=== PATIENT | female | born 1985 | race Caucasian/White ===

== ENCOUNTER 2017-10-10 08:00 | Outpatient (CLI) | payer MEDICAID ==
[2017-10-10 15:13] LABS: MUDS CUTOFF CONCENTRATIONS CUTOFF CONC BELOW:
[2017-10-10 17:40] LABS: AMPHETAMINE SCREEN,URINE POSITIVE (NEGATIVE); COCAINE SCREEN URINE NEGATIVE (NEGATIVE); METHAMPHETAMINES SCREEN, URINE NEGATIVE (NEGATIVE); OPIATE SCREEN, URINE NEGATIVE (NEGATIVE)
[2017-10-10 17:41] LABS: BENZODIAZEPINES SCREEN, URINE NEGATIVE (NEGATIVE); METHADONE SCREEN, URINE NEGATIVE (NEGATIVE); OXYCODONE SCREEN, URINE NEGATIVE (NEGATIVE); PROPOXYPHENE SCREEN, URINE NEGATIVE (NEGATIVE); TRICYCLIC ANTIDEPRESSANT,URINE NEGATIVE (NEGATIVE)
== END 2017-10-10 08:01 | disposition home or self-care (01) ==
LOC: LAB.S 08:00
PROVIDERS: ATTEND Nurse Practitioner Family
DX: F90.9 Attention-deficit hyperactivity disorder, unspecified type (principal)
CPT/HCPCS: 80306

== ENCOUNTER 2019-10-24 15:54 | Emergency (ER) | payer MEDICAID, OTHER ==
[2019-10-24] MEDS ORDERED: traMADol 50 MG TABLET PO STA (16:16)
--- NOTE | 2019-10-24 16:18 | ED Physician Documentation ---
History of Present Illness - Stated complaint Stated Complaint: FELL NECK,SHOULDER PX - Chief complaint Chief Complaint: Back Pain - History obtained from History obtained from: Patient (34-year-old female generally healthy presented emergency room with left shoulder and left scapular area tenderness. She fell 5 days ago and pain is not improving. She has taken some Flexeril from her previous prescription and there was no relief.During her fall 5 days ago, there was no direct impact to the head. Patient had a sudden jerk as she landed onto the ground.In the emergency room patient is able to ambulate without difficulty. She is able to describe her symptoms very clearly. She had mild limited range of motion to the left shoulder.), Family - History of Present Illness Timing: How many days ago (5) Review of Systems Ten Systems: 10 systems reviewed and negative Constitutional: reports: Reviewed and negative Eyes: reports: Reviewed and negative Ears: reports: Reviewed and negative Nose: reports: Reviewed and negative Throat: reports: Reviewed and negative Cardiac: reports: Reviewed and negative Respiratory: reports: Reviewed and negative GI: reports: Reviewed and negative : reports: Reviewed and negative Skin: reports: Reviewed and negative Musculoskeletal: reports: Neck pain (left side neck muscle), Extremity pain (left shoulder pain on ROM) Neurologic: reports: Reviewed and negative. denies: Generalized weakness, Focal weakness, Numbness Psychiatric: reports: Reviewed and negative Endocrine: reports: Reviewed and negative Immunocompromised: reports: Reviewed and negative PD PAST MEDICAL HISTORY - Past Medical History Past Medical History: Yes [employer]: Endometriosis HEENT: Dental implants - Past Surgical History Past Surgical History: Yes General: Appendectomy HEENT: Myringotomy (tubes), Tonsil/Adenoidectomy - Present Medications Home Medications: Ambulatory Orders Medication Instructions Recorded Confirmed Methadone HCl [Methadose] 40 mg PO DAILY 02/02/14 02/02/14 Sulfamethoxazole/Trimethoprim 1 each PO BID #14 tablet 02/03/14 [Sulfamethoxazole-Tmp Ds Tablet] Clindamycin HCl 300 mg PO Q6H #28 capsule 02/05/14 Cyclobenzaprine [Flexeril] 10 mg PO TID PRN #20 tablet 10/24/19 Oxycodone HCl/Acetaminophen 1 - 2 each PO Q6H PRN #10 tablet 10/24/19 [Percocet 5-325 mg Tablet] - Allergies Allergies/Adverse Reactions: Allergies Allergy/AdvReac Type Severity Reaction Status Date / Time ketorolac tromethamine * Allergy Severe Headache Verified 10/24/19 16:07 [From Toradol] morphine Allergy Severe Hives Verified 10/24/19 16:07 Penicillins Allergy Severe Hives Verified 10/24/19 16:07 hydrocodone [Hydrocodone] AdvReac Intermediate Cramps Verified 10/24/19 16:07 - Social History Does the pt smoke?: Yes Smoking Status: Current every day smoker Does the pt drink ETOH?: No Does the pt have substance abuse?: No - Immunizations Immunizations are current?: Yes - POLST Patient has POLST: No PD ED PE NORMAL - Vitals Vital signs reviewed: Yes - General General: Alert and oriented X 3, No acute distress, Well developed/nourished - HEENT HEENT: Atraumatic, PERRL, EOMI - Neck Neck: Supple, no meningeal sign - Cardiac Cardiac: RRR, No murmur - Respiratory Respiratory: No respiratory distress, Clear bilaterally - Abdomen Abdomen: Normal bowel sounds, Soft, Non tender, Non distended - Derm Derm: Warm and dry - Extremities Extremities: No deformity, No edema, Other (Limited range of motion of the left shoulder, tenderness to palpation of the left scapula,) - Neuro Neuro: Alert and oriented X 3, No motor deficit, Normal speech Eye Opening: Spontaneous Motor: Obeys Commands Verbal: Oriented GCS Score: 15 - Psych Psych: Normal mood, Normal affect Results - Vitals Vitals: Vital Signs - 24 hr 10/24/19 15:57 Temperature 36.8 C Heart Rate 77 Respiratory 17 Rate Blood Pressure 160/94 H O2 Saturation 100 Oxygen O2 Source Room air - Rads (name of study) No standard instances Radiology: Final report received PD MEDICAL DECISION MAKING - ED course Complexity details: d/w patient, d/w family ED course: Patient is reassessed at 5 PM, disclosed negative x-ray of the left shoulder. She is given impression of left shoulder sprain, likely injury to the rotator cuff tendon. She is recommended to follow-up with her primary care doctor for physical therapy referral. Departure - Departure Disposition: 01 Home, Self Care Clinical Impression: Strain of left shoulder Qualifiers: Encounter type: initial encounter Qualified Code(s): S46.912A - Strain of unspecified muscle, fascia and tendon at shoulder and upper arm level, left arm, initial encounter Rhomboid muscle strain Qualifiers: Encounter type: initial encounter Qualified Code(s): S29.012A - Strain of muscle and tendon of back wall of thorax, initial encounter Rotator cuff dysfunction Qualifiers: Laterality: left Qualified Code(s): M67.912 - Unspecified disorder of synovium and tendon, left shoulder Condition: Stable Instructions: Rotator Cuff Injury, ED Sprain Shoulder Follow-Up: Provider,Other [Primary Care Provider] - Prescriptions: Cyclobenzaprine [Flexeril] 10 mg PO TID PRN #20 tablet PRN Reason: Spasms Oxycodone HCl/Acetaminophen [Percocet 5-325 mg Tablet] 1 - 2 each PO Q6H PRN #10 tablet PRN Reason: pain Forms: Activity restrictions
--- NOTE | 2019-10-24 16:49 | XRAY Report ---
Reason: fall Procedure Date: 10/24/2019 Accession Number: [id number] / [id number] Procedure: XR - Shoulder 3 View LT CPT Code: Final Report FULL RESULT: EXAM: LEFT SHOULDER RADIOGRAPHY EXAM DATE: 10/24/2019 04:34 PM. CLINICAL HISTORY: Left shoulder/scapular pain since fall one week ago COMPARISON: None. TECHNIQUE: 3 views. FINDINGS: Bones: No fracture or bone destructive process. Joints: No subluxation. Glenohumeral and acromioclavicular joints are preserved. Soft tissues: No periarticular calcifications. IMPRESSION: 1. Negative. No significant bony or articular abnormality identified. RADIA
[2019-10-24 17:17] VITALS: BP 148/91
== END 2019-10-24 17:18 | disposition home or self-care (01) ==
LOC: ED 15:54
DX: S46.912A Strain of unspecified muscle, fascia and tendon at shoulder and upper arm level, left arm, initial encounter (principal); S29.012A Strain of muscle and tendon of back wall of thorax, initial encounter; M54.2 Cervicalgia; W01.0XXA Fall on same level from slipping, tripping and stumbling without subsequent striking against object, initial encounter; Y93.02 Activity, running; M67.912 Unspecified disorder of synovium and tendon, left shoulder; F17.200 Nicotine dependence, unspecified, uncomplicated
CPT/HCPCS: 73030; 99283; 99284; A9270

== ENCOUNTER 2020-02-04 15:02 | Outpatient (CLI) | payer OTHER | END 2020-02-04 15:03 | disposition home or self-care (01) | LOC: LAB 15:02 | PROVIDERS: ATTEND Family Medicine | DX: O20.9 Hemorrhage in early pregnancy, unspecified (principal) | CPT/HCPCS: 36415; 84702; 86900; 86901 ==

== ENCOUNTER 2020-02-06 11:55 | Outpatient (CLI) | payer OTHER | END 2020-02-06 11:56 | disposition home or self-care (01) | LOC: LAB 11:55 | PROVIDERS: ATTEND Family Medicine | DX: O20.9 Hemorrhage in early pregnancy, unspecified (principal) | CPT/HCPCS: 36415; 84144; 84702 ==

== ENCOUNTER 2020-03-25 01:36 | Emergency (ER) | payer OTHER ==
--- NOTE | 2020-03-25 02:02 | ED Physician Documentation ---
PD HPI FEMALE - Stated complaint Stated Complaint: FEM /11WKS PREG - Chief complaint Chief Complaint: Abd Pain - History obtained from History obtained from: Patient, Family - History of Present Illness Timing - onset: Today Timing - duration: Minutes Timing - details: Abrupt onset, Still present Associated symptoms: Pelvic pain, Vaginal bleeding Contributing factors: [employer] History: G (1), P (0) Similar symptoms before: Has not had sx before Recently seen: Clinic - Additional information Additional information: 32-year-old previously well female reports being 11 weeks and having acute onset of bleeding and cramping. She is having excessive amounts of bleeding passing clots and saturating a pad in 2 hours. She has significant pelvic pain associated with this.She reports having an ultrasound done showing a viable fetus 2 weeks ago. Review of Systems Constitutional: denies: Fever Ears: denies: Ear pain Nose: denies: Congestion Throat: denies: Sore throat Cardiac: denies: Chest pain / pressure Respiratory: denies: Dyspnea, Cough GI: reports: Abdominal Pain, Nausea : denies: Dysuria, Frequency Skin: denies: Rash Musculoskeletal: denies: Neck pain, Back pain, Extremity pain Neurologic: denies: Generalized weakness, Focal weakness, Numbness PD PAST MEDICAL HISTORY - Past Medical History [employer]: Endometriosis HEENT: Dental implants - Past Surgical History Past Surgical History: Yes General: Appendectomy HEENT: Myringotomy (tubes), Tonsil/Adenoidectomy - Present Medications Home Medications: Ambulatory Orders Medication Instructions Recorded Confirmed Methadone HCl [Methadose] 40 mg PO DAILY 02/02/14 02/02/14 Sulfamethoxazole/Trimethoprim 1 each PO BID #14 tablet 02/03/14 [Sulfamethoxazole-Tmp Ds Tablet] Clindamycin HCl 300 mg PO Q6H #28 capsule 02/05/14 Cyclobenzaprine [Flexeril] 10 mg PO TID PRN #20 tablet 10/24/19 Oxycodone HCl/Acetaminophen 1 - 2 each PO Q6H PRN #10 tablet 10/24/19 [Percocet 5-325 mg Tablet] Oxycodone HCl/Acetaminophen 1 - 2 each PO Q6H PRN #14 tablet 03/25/20 [Percocet 5-325 mg Tablet] - Allergies Allergies/Adverse Reactions: Allergies Allergy/AdvReac Type Severity Reaction Status Date / Time ketorolac tromethamine * Allergy Severe Headache Verified 10/24/19 16:07 [From Toradol] morphine Allergy Severe Hives Verified 10/24/19 16:07 Penicillins Allergy Severe Hives Verified 10/24/19 16:07 latex Allergy Rash Verified 03/25/20 01:49 tramadol [From Ultram] Allergy Headache Verified 03/25/20 01:49 hydrocodone [Hydrocodone] AdvReac Intermediate Cramps Verified 10/24/19 16:07 - Social History Does the pt smoke?: Yes Smoking Status: Current every day smoker Does the pt drink ETOH?: No Does the pt have substance abuse?: No - Immunizations Immunizations are current?: Yes - POLST Patient has POLST: No PD ED PE NORMAL - Vitals Vital signs reviewed: Yes (hypertensive ) - General General: Alert and oriented X 3, No acute distress, Well developed/nourished - HEENT HEENT: Atraumatic, PERRL, EOMI - Neck Neck: Supple, no meningeal sign - Cardiac Cardiac: RRR, No murmur - Respiratory Respiratory: No respiratory distress, Clear bilaterally - Abdomen Abdomen: Soft, Other (mild suprapubic tenderness ) - Back Back: No CVA TTP, No spinal TTP - Derm Derm: Normal color, Warm and dry, No rash - Extremities Extremities: No deformity, No edema, No calf tenderness / cord - Neuro Neuro: Alert and oriented X 3, cat swamper 2-12 intact, No motor deficit, No sensory deficit, Normal speech Eye Opening: Spontaneous Motor: Obeys Commands Verbal: Oriented GCS Score: 15 - Psych Psych: Normal mood, Normal affect Results - Vitals Vitals: Vital Signs - 24 hr 03/25/20 03/25/20 03/25/20 01:43 03:09 03:35 Temperature 36.8 C Heart Rate 92 77 81 Respiratory 18 16 18 Rate Blood Pressure 137/90 H 116/74 130/65 O2 Saturation 100 100 97 03/25/20 03/25/20 03/25/20 04:03 04:53 05:05 Temperature Heart Rate 69 73 84 Respiratory 16 Rate Blood Pressure 114/58 L 104/62 118/78 O2 Saturation 97 99 99 Oxygen O2 Source Room air - Labs Labs: Laboratory Tests 03/25/20 03/25/20 03/25/20 02:38 02:38 02:38 WBC 18.7 H RBC 4.45 Hgb 13.6 Hct 40.8 MCV 91.7 MCH 30.6 MCHC 33.3 RDW 11.9 L Plt Count 317 MPV 9.8 Neut # (Auto) 16.8 H Lymph # (Auto) 1.1 L [place] # (Auto) 0.6 Eos # (Auto) 0.0 Baso # (Auto) 0.1 Absolute Nucleated RBC 0.00 Nucleated RBC % 0.0 Sodium 138 Potassium 3.9 Chloride 102 Carbon Dioxide 26 Anion Gap 10.0 BUN 10 Creatinine 0.6 Estimated GFR (MDRD) 116 Glucose 105 H Calcium 9.6 Total Bilirubin 0.5 AST 19 ALT 26 Alkaline Phosphatase 48 Total Protein 7.6 Albumin 4.7 Globulin 2.9 Albumin/Globulin Ratio 1.6 Lipase 30 HCG, Quant 2068.00 Urine Color Urine Clarity Urine pH Ur Specific [place] Urine Protein Urine Glucose (UA) Urine Ketones Urine Occult Blood Urine Nitrite Urine Bilirubin Urine Urobilinogen Ur Leukocyte Esterase Urine RBC Urine WBC Ur Squamous Epith Cells Urine Bacteria Ur Microscopic Review Urine Culture Comments 03/25/20 03:50 WBC RBC Hgb Hct MCV MCH MCHC RDW Plt Count MPV Neut # (Auto) Lymph # (Auto) [place] # (Auto) Eos # (Auto) Baso # (Auto) Absolute Nucleated RBC Nucleated RBC % Sodium Potassium Chloride Carbon Dioxide Anion Gap BUN Creatinine Estimated GFR (MDRD) Glucose Calcium Total Bilirubin AST ALT Alkaline Phosphatase Total Protein Albumin Globulin Albumin/Globulin Ratio Lipase HCG, Quant Urine Color LT RED Urine Clarity SL. CLOUDY Urine pH 5.5 Ur Specific [place] 1.020 Urine Protein TRACE Urine Glucose (UA) NEGATIVE Urine Ketones NEGATIVE Urine Occult Blood LARGE H Urine Nitrite NEGATIVE Urine Bilirubin NEGATIVE Urine Urobilinogen 0.2 (NORMAL) Ur Leukocyte Esterase TRACE H Urine RBC TNTC H Urine WBC 0-3 Ur Squamous Epith Cells RARE Squamous Urine Bacteria Rare Ur Microscopic Review INDICATED Urine Culture Comments INDICATED - Rads (name of study) u/s pelvis Radiology: Prelim report reviewed (1 no intrauterine gestation. Thickened heterogeneous endometrial stripe part of which is nonvascular favoring hemorrhage. No adnexal masses or free fluid to suggest ectopic . Findings favor missed spontaneous .), EMP read indepedently, See rad report Procedures - Bedside sono Bedside sono by EMP: With use of bedside ultrasound the pelvis is imaged and there is no evidence of a fetus or gestational sac in the uterus. PD MEDICAL DECISION MAKING - ED course Complexity details: reviewed old records, reviewed results, re-evaluated patient, considered differential, d/w patient, d/w family ED course: 34-year-old female 11 weeks has falling hCG, bleeding, cramping and passing of clots she is O+ blood type. Ultrasound does not demonstrate a fetus in the uterus. There is no evidence of ectopic on the ultrasound ex am. She has had a spontaneous miscarriage and she is bleeding and cramping heavily and she has improvement in her pain with use of Dilaudid. She is given a prescription for oxycodone. Departure - Departure Disposition: 01 Home, Self Care Clinical Impression: Miscarriage Condition: Stable Instructions: ED Miscarriage Completed Follow-Up: CHANI BEDOLLA MD [Primary Care Provider] - [facility] [Provider Group] Prescriptions: Oxycodone HCl/Acetaminophen [Percocet 5-325 mg Tablet] 1 - 2 each PO Q6H PRN #14 tablet PRN Reason: pain
[2020-03-25] MEDS ORDERED: HYDROmorphone 1 MG/ML CARPUJECT IVP STA ×2 (02:03→03:26)
[2020-03-25] MEDS ORDERED: ONDANSETRON 4 MG/2 ML VIAL IVP STA (02:03)
[2020-03-25 02:58] LABS: BASOPHILS # (AUTO) 0.1 10^3/uL (0.0-0.1); BASOPHILS % (AUTO) 0.4 %; EOSINOPHILS % (AUTO) 0.2 %; HGB - HEMOGLOBIN 13.6 g/dL (12.0-16.0); LYMPHOCYTES # (AUTO) 1.1 10^3/uL (1.5-3.5); LYMPHOCYTES % (AUTO) 5.8 %; MEAN CORPUSCULAR HEMOGLOBIN 30.6 pg (27.0-31.0); MEAN CORPUSCULAR HGB CONC 33.3 g/dL (32.0-36.0); MEAN CORPUSCULAR VOLUME 91.7 fL (81.0-99.0); MEAN PLATELET VOLUME 9.8 fL (7.9-10.8); MONOCYTES # (AUTO) 0.6 10^3/uL (0.0-1.0); NEUTROPHILS # (AUTO) 16.8 10^3/uL (1.5-6.6); NEUTROPHILS % (AUTO) 89.9 %; PLT - PLATELET COUNT 317 10^3/uL (130-450); RED BLOOD COUNT 4.45 10^6/uL (4.20-5.40); RED CELL DISTRIBUTION WIDTH 11.9 % (12.0-15.0); WHITE BLOOD COUNT 18.7 x10^3/uL (4.8-10.8)
[2020-03-25 03:11] LABS: ALBUMIN 4.7 g/dL (3.2-5.5); ALBUMIN/GLOBULIN RATIO 1.6 (1.0-2.2); BILIRUBIN,TOTAL 0.5 mg/dL (0.2-1.0); CALCIUM 9.6 mg/dL (8.5-10.3); CREATININE 0.6 mg/dL (0.4-1.0); TOTAL PROTEIN 7.6 g/dL (6.7-8.2)
[2020-03-25 04:03] LABS: BILIRUBIN,URINE NEGATIVE (NEGATIVE); GLUCOSE, URINE (UA) NEGATIVE (NEGATIVE); KETONES,URINE (UA) NEGATIVE (NEGATIVE); LEUKOCYTE ESTERASE, URINE TRACE (NEGATIVE); NITRITE,URINE NEGATIVE (NEGATIVE); OCCULT BLOOD,URINE LARGE (NEGATIVE); PH,URINE 5.5 PH (5.0-7.5); PROTEIN,URINE TRACE mg/dL (NEGATIVE); UROBILINOGEN,URINE 0.2 (NORMAL) E.U./dL (NORMAL)
[2020-03-25 04:17] LABS: BACTERIA,URINE Rare /HPF (None Seen); CLARITY,URINE SL. CLOUDY (CLEAR); RBC,URINE TNTC /HPF (0-5); SQUAMOUS EPITHELIAL CELL,UR RARE Squamous (<= Few)
[2020-03-25 05:06] VITALS: BP 118/78
[2020-03-25] MEDS ORDERED: oxyCODONE/ACET 5/325 Prepack 4 PO STA (05:10)
--- NOTE | 2020-03-25 08:39 | Ultrasound Report ---
PROCEDURE: OB First Trimester INDICATIONS: 11 wks bleeding OUTSIDE/PRIOR DATING DATA: Last menstrual period (LMP): 12/23/2019. LMP-based estimated date of delivery (PAVAN): 09/28/2020. First dating scan (date and location): 03/11/2020 at patient's primary care clinic. Demonstrated intra uterine gestation measuring approximately 9 weeks and 1 day. Estimated date of delivery (PAVAN) from first dating scan: 11 weeks and 01 day. TECHNIQUE: Real-time scanning was performed of the fetus and maternal pelvic organs, with image documentation. COMPARISON: Prior imaging not available for review. FINDINGS: Heterogeneously thickened endometrium with a few scattered foci of internal vascularity. N o focal mass lesions. Endometrium measures approximately 14 mm in thickness. No evidence for an intra uterine gestation or gestational sac. A few small nabothian cysts are present in the cervix. There is a small 1.7 cm cyst in the left ovary, likely representing a corpus luteal cyst. Otherwise, ovaries are unremarkable bilaterally. No pathologic free fluid. Limited images through the kidneys demonstrate no hydronephrosis. IMPRESSION: Heterogeneously thickened endometrium with scattered foci of vascularity. No evidence for intrauterin e gestation/gestational sac. No evidence for ectopic identified this time. Given history of a documented intrauterine gestation, findings are likely related to a missed spontan eous miscarriage. Recommend continued clinical surveillance and serial quantitative hCG measurements to ensure expected rate of decline. Short interval follow-up imaging as needed. No significant discrepancy with initial interpretation by overnight radiologist. Reviewed by: John Farris MD on 03/25/2020 8:38 AM PDT Approved by: John Farris MD on 03/25/2020 8:38 AM PDT Station ID: [id number]
--- NOTE | 2020-03-25 08:40 | Ultrasound Report ---
PROCEDURE: OB First Trimester INDICATIONS: 11 wks bleeding OUTSIDE/PRIOR DATING DATA: Last menstrual period (LMP): 12/23/2019. LMP-based estimated date of delivery (PAVAN): 09/28/2020. First dating scan (date and location): 03/11/2020 at patient's primary care clinic. Demonstrated intra uterine gestation measuring approximately 9 weeks and 1 day. Estimated date of delivery (PAVAN) from first dating scan: 11 weeks and 01 day. TECHNIQUE: Real-time scanning was performed of the fetus and maternal pelvic organs, with image documentation. Transvaginal imaging was also performed. COMPARISON: Prior imaging not available for review. FINDINGS: Heterogeneously thickened endometrium with a few scattered foci of internal vascularity. N o focal mass lesions. Endometrium measures approximately 14 mm in thickness. No evidence for an intra uterine gestation or gestational sac. A few small nabothian cysts are present in the cervix. There is a small 1.7 cm cyst in the left ovary, likely representing a corpus luteal cyst. Otherwise, ovaries are unremarkable bilaterally. No pathologic free fluid. Limited images through the kidneys demonstrate no hydronephrosis. IMPRESSION: Heterogeneously thickened endometrium with scattered foci of vascularity. No evidence for intrauterin e gestation/gestational sac. No evidence for ectopic identified this time. Given history of a documented intrauterine gestation, findings are likely related to a missed spontan eous miscarriage. Recommend continued clinical surveillance and serial quantitative hCG measurements to ensure expected rate of decline. Short interval follow-up imaging as needed. No significant discrepancy with initial interpretation by overnight radiologist. Reviewed by: John Farris MD on 03/25/2020 8:39 AM PDT Approved by: John Farris MD on 03/25/2020 8:39 AM PDT Station ID: [id number]
== END 2020-03-25 05:31 | disposition home or self-care (01) ==
LOC: ED 01:36
DX: O03.9 Complete or unspecified spontaneous abortion without complication (principal); F17.200 Nicotine dependence, unspecified, uncomplicated
CPT/HCPCS: 36415; 76801; 76817; 80053; 81001; 83690; 84702; 85025; 87086; 96374; 96375; 96376; 99284; J1170; 81003

== ENCOUNTER 2021-01-22 08:00 | Outpatient (CLI) | payer OTHER ==
[2021-01-23 20:33] LABS: CHLAMYDIA TRACHOMATIS DNA NEGATIVE (NEGATIVE); NEISSERIA GONORRHOEAE DNA NEGATIVE (NEGATIVE); TRICHOMONAS VAGINALIS DNA NEGATIVE (NEGATIVE)
== END 2021-01-22 23:59 | disposition home or self-care (01) ==
LOC: LAB.R 08:00
PROVIDERS: ATTEND Obstetrics & Gynecology
DX: Z11.3 Encounter for screening for infections with a predominantly sexual mode of transmission (principal)
CPT/HCPCS: 87491; 87591; 87661

== ENCOUNTER 2023-01-21 07:47 | Emergency (ER) | payer BC, OTHER ==
--- NOTE | 2023-01-21 08:35 | ED Physician Documentation ---
PD HPI CHEST PAIN - Stated complaint Stated Complaint: LT ARM PX,CHEST PX - Chief complaint Chief Complaint: Cardiac - History obtained from History obtained from: Patient, Family - Additional information Additional information: Patient is a 37-year-old female presenting for evaluation of chest pain. Patient states that she woke up around 3:00 feeling a discomfort in her left shoulder which she attributed to laying on that side. She was able to go back to sleep. She woke up at 630 and reported feeling a pressure in the left side of her chest that she also feels in her left arm that comes and goes. The pain in the chest has been constant since 630 AM. Nothing makes it better or worse including movements or taking a deep breath. Patient has a history of hypertension. She reports having had other episodes of similar chest pain and has been working with her PCP in figuring out if this is related to her blood pressure medication or not. She denies having had any prior cardiology evaluat ion including EKGs, chest x-ray or stress test. She reports a family history of early coronary artery disease. She states that her uncle had an MO In his 30s. She also reports that her father had significant vascular disease with a AAA diagnosed at 50. Her father did not have any Cardiac history but did have a history of hypertension, hyperlipidemia and was a smoker. Her mother is at the bedside and denies any known coronary artery disease. She has half siblings on her mother's side and mother states that they do not have any known cardiac problems.Patient occasionally uses cannabis. Denies other drug use.Does not smoke.Denies recent travel or immobilization, history of PE or DVT, leg swelling or pain, hemoptysis, fevers.She is unsure about as she is trying to get and her period is due soon. Review of Systems Constitutional: denies: Fever Cardiac: reports: Chest pain / pressure. denies: Palpitations Respiratory: denies: Dyspnea, Cough GI: denies: Abdominal Pain, Vomiting, Diarrhea Musculoskeletal: denies: Back pain Neurologic: denies: Headache PD PAST MEDICAL HISTORY - Past Medical History DOORPERSON: Endometriosis HEENT: Dental implants - Past Surgical History Past Surgical History: Yes General: Appendectomy HEENT: Myringotomy (tubes), Tonsil/Adenoidectomy - Present Medications Home Medications: Ambulatory Orders Medication Instructions Recorded Confirmed Dextroamphetamine/Amphetamine 20 mg PO DAILY PRN 01/21/23 01/21/23 [Adderall 20 mg Tablet] Labetalol [Trandate] 200 mg PO BID 01/21/23 01/21/23 buPROPion [Wellbutrin Xl] 450 mg PO DAILY 01/21/23 01/21/23 - Allergies Allergies/Adverse Reactions: Allergies Allergy/AdvReac Type Severity Reaction Status Date / Time ketorolac tromethamine * Allergy Severe Headache Verified 01/21/23 08:07 [From Toradol] morphine Allergy Severe Hives Verified 01/21/23 08:07 Penicillins Allergy Severe Hives Verified 01/21/23 08:07 latex Allergy Rash Verified 01/21/23 08:07 tramadol [From Ultram] Allergy Headache Verified 01/21/23 08:07 hydrocodone [Hydrocodone] AdvReac Intermediate Cramps Verified 01/21/23 08:07 - Social History Does the pt smoke?: Yes Smoking Status: Current every day smoker Does the pt drink ETOH?: No Does the pt have substance abuse?: No - Immunizations Immunizations are current?: Yes - POLST Patient has POLST: No PD ED PE NORMAL - General General: Alert and oriented X 3, No acute distress, Well developed/nourished - HEENT HEENT: Atraumatic - Neck Neck: Supple, no meningeal sign - Cardiac Cardiac: RRR, No murmur, Other (No chest wall tenderness or crepitus, no rash) - Respiratory Respiratory: No respiratory distress, Clear bilaterally - Abdomen Abdomen: Soft, Non tender - Derm Derm: Warm and dry - Extremities Extremities: No edema, No calf tenderness / cord - Neuro Neuro: Normal speech Results - Vitals Vitals: Vital Signs - 24 hr 01/21/23 01/21/23 01/21/23 08:03 09:36 10:19 Temperature 36.7 C Heart Rate 74 71 66 Respiratory 16 18 18 Rate Blood Pressure 137/77 H 122/64 121/70 O2 Saturation 99 95 97 01/21/23 01/21/23 01/21/23 11:00 11:30 13:03 Temperature Heart Rate 72 83 80 Respiratory 19 20 16 Rate Blood Pressure 114/84 H 96/69 124/56 L O2 Saturation 98 98 100 Oxygen O2 Source Room air - EKG (time done) 0811 EKG releavant findings:: EKG personally interpreted by author of this note. Relevant findings are: Rate 73, normal sinus rhythm, no STEMI, QTc 431 Rate: Rate (enter#) Rhythm: NSR Intervals: RBBB (incomplete). No: Prolonged QT Ischemia: No: ST elevation c/w ischemia Compare to prior EKG: Old EKG unavailable - Labs Labs: Laboratory Tests 01/21/23 01/21/23 01/21/23 09:23 09:23 09:23 WBC 5.8 RBC 4.87 Hgb 14.8 Hct 44.7 MCV 91.8 MCH 30.4 MCHC 33.1 RDW 12.7 Plt Count 308 MPV 10.0 Neut # (Auto) 3.7 Lymph # (Auto) 1.3 L [place] # (Auto) 0.5 Eos # (Auto) 0.2 Baso # (Auto) 0.1 Absolute Nucleated RBC 0.00 Nucleated RBC % 0.0 Sodium 142 Potassium 4.3 Chloride 106 Carbon Dioxide 26 Anion Gap 10.0 BUN 13 Creatinine 0.7 Estimated GFR (MDRD) 95 Glucose 90 Calcium 9.6 Total Bilirubin 0.4 AST 27 ALT 27 Alkaline Phosphatase 44 Troponin I High Sens < 2.3 L Total Protein 7.8 Albumin 4.6 Globulin 3.2 Albumin/Globulin Ratio 1.4 Lipase 32 Urine HCG, Qual 01/21/23 01/21/23 10:09 12:23 WBC RBC Hgb Hct MCV MCH MCHC RDW Plt Count MPV Neut # (Auto) Lymph # (Auto) [place] # (Auto) Eos # (Auto) Baso # (Auto) Absolute Nucleated RBC Nucleated RBC % Sodium Potassium Chloride Carbon Dioxide Anion Gap BUN Creatinine Estimated GFR (MDRD) Glucose Calcium Total Bilirubin AST ALT Alkaline Phosphatase Troponin I High Sens < 2.3 L Total Protein Albumin Globulin Albumin/Globulin Ratio Lipase Urine HCG, Qual NEGATIVE PD Medical Decision Making - ED course Complexity details: reviewed results, re-evaluated patient, d/w patient ED course: Patient presenting for evaluation of chest pain. Her EKG is reviewed without signs of acute ischemia. Labs reviewed including CBC, chemistries and high- sensitivity troponin which is negative. I reviewed her chest x-ray which is Negative for fluid or consolidation and demonstrates normal heart size. Patient has had stable vital signs here. She did have a repeat troponin which is also negative. She is low risk for ACS based on the heart score and her symptoms do not suggest unstable angina.Her work-up here does not suggest STEMI or NSTEMI. She is a PERC negative. No migratory Worsening symptoms to suggest dissection. Patient has been in touch with her PCP and plans to See her for close follow- up. She is advised on concerning symptoms to return for. Departure - Departure Disposition: 01 Home, Self Care Clinical Impression: Chest pain Condition: Stable Instructions: ED Chest Pain Atypical Unkn Cause Comments: You were evaluated for chest pain today. Your labs including cardiac markers have been negative. Your chest x-ray is normal. The exact cause for your chest pain is unclear at this time. You may need further testing such as a stress test or ultrasound of your heart. I would recommend close follow-up with your primary care provider. If at anytime your symptoms worsen or you develop any new symptoms please return to the emergency department. Discharge Date/Time: 01/21/23 13:05
--- NOTE | 2023-01-21 08:47 | XRAY Report ---
PROCEDURE: Chest 1 View X-Ray INDICATIONS: CP TECHNIQUE: One view of the chest was acquired. COMPARISON: None. FINDINGS: Surgical changes and devices: None. Lungs and pleura: No pleural effusions or pneumothorax. Lungs are clear. Mediastinum: Mediastinal contours appear normal. Heart size is normal. Bones and chest wall: No suspicious bony lesions. Overlying soft tissues appear unremarkable. IMPRESSION: No acute cardiopulmonary process. Reviewed by: Carolee Guevara MD on 01/21/2023 8:45 AM PDT Approved by: Carolee Guevara MD on 01/21/2023 8:45 AM PDT Station ID: [id number]
[2023-01-21 09:28] LABS: BASOPHILS # (AUTO) 0.1 10^3/uL (0.0-0.1); BASOPHILS % (AUTO) 0.9 %; EOSINOPHILS # (AUTO) 0.2 10^3/uL (0.0-0.7); EOSINOPHILS % (AUTO) 3.8 %; HCT - HEMATOCRIT 44.7 % (37.0-47.0); HGB - HEMOGLOBIN 14.8 g/dL (12.0-16.0); LYMPHOCYTES # (AUTO) 1.3 10^3/uL (1.5-3.5); LYMPHOCYTES % (AUTO) 22.9 %; MEAN CORPUSCULAR HEMOGLOBIN 30.4 pg (27.0-31.0); MEAN CORPUSCULAR HGB CONC 33.1 g/dL (32.0-36.0); MEAN CORPUSCULAR VOLUME 91.8 fL (81.0-99.0); MONOCYTES # (AUTO) 0.5 10^3/uL (0.0-1.0); MONOCYTES % (AUTO) 8.6 %; NEUTROPHILS # (AUTO) 3.7 10^3/uL (1.5-6.6); NEUTROPHILS % (AUTO) 63.6 %; PLT - PLATELET COUNT 308 10^3/uL (130-450); RED BLOOD COUNT 4.87 10^6/uL (4.20-5.40); RED CELL DISTRIBUTION WIDTH 12.7 % (12.0-15.0); WHITE BLOOD COUNT 5.8 x10^3/uL (4.8-10.8)
[2023-01-21 09:43] LABS: ALBUMIN 4.6 g/dL (3.2-5.5); ALBUMIN/GLOBULIN RATIO 1.4 (1.0-2.2); BILIRUBIN,TOTAL 0.4 mg/dL (0.2-1.0); CALCIUM 9.6 mg/dL (8.5-10.3); CREATININE 0.7 mg/dL (0.4-1.0); POTASSIUM 4.3 mmol/L (3.5-5.0); TOTAL PROTEIN 7.8 g/dL (6.7-8.2)
[2023-01-21 10:17] LABS: HCG UR QUAL NEGATIVE
[2023-01-21 13:05] VITALS: BP 124/56
== END 2023-01-21 13:05 | disposition home or self-care (01) ==
LOC: ED 07:47
DX: R07.9 Chest pain, unspecified (principal); F17.200 Nicotine dependence, unspecified, uncomplicated
CPT/HCPCS: 36415; 80053; 81025; 83690; 84484; 85025; 93005; 99283; 99284

== ENCOUNTER 2024-02-29 11:51 | Outpatient (CLI) | payer BC | END 2024-02-29 11:52 | disposition home or self-care (01) | LOC: RT 11:51 | PROVIDERS: ATTEND Dentist Periodontics | DX: Z01.810 Encounter for preprocedural cardiovascular examination (principal) | CPT/HCPCS: 93005 ==

== ENCOUNTER 2024-04-01 09:28 | Emergency (ER) | payer BC ==
[2024-04-01 10:05] LABS: BILIRUBIN,URINE NEGATIVE (NEGATIVE); GLUCOSE, URINE (UA) NEGATIVE (NEGATIVE); KETONES,URINE (UA) NEGATIVE (NEGATIVE); LEUKOCYTE ESTERASE, URINE NEGATIVE (NEGATIVE); NITRITE,URINE NEGATIVE (NEGATIVE); OCCULT BLOOD,URINE NEGATIVE (NEGATIVE); PH,URINE 7.5 PH (5.0-7.5); PROTEIN,URINE NEGATIVE (NEGATIVE); UROBILINOGEN,URINE 0.2 (NORMAL) E.U./dL (NORMAL)
[2024-04-01 10:07] LABS: CLARITY,URINE CLEAR (CLEAR); HCG UR QUAL NEGATIVE
--- NOTE | 2024-04-01 11:45 | Ultrasound Report ---
PROCEDURE: Abdomen Limited INDICATIONS: RUQ pain since last evening TECHNIQUE: Real-time focused scanning was performed of the abdomen, with image documentation. COMPARISONS: None. FINDINGS: Liver: Liver is normal in size and homogeneous in echotexture. The main portal vein demonstrates nor mal size and hepatopedal flow. Gallbladder: No gallstones, sludge, or gallbladder wall thickening. There is potential trace perichol ecystic fluid. The patient experienced dull pain during the examination. Biliary ducts: Intrahepatic bile ducts are non-dilated. Extrahepatic bile duct caliber measures 3 m m. Normal is 6-7 mm or less in diameter, or 10 mm or less post-cholecystectomy. Pancreas: Visualized portions of the pancreas are sonographically normal. Right kidney: Normal in size and echotexture. Right kidney measures 11 cm long. No hydronephrosis or nephrolithiasis. No solid masses. No complex renal cystic lesions which require follow-up. IVC: Intrahepatic inferior vena cava is patent. Miscellaneous: No free abdominal fluid. IMPRESSION: Potential trace pericholecystic fluid with an equivocal sonographic Terrazas's sign. No additional sono graphic signs of cholecystitis are seen. No biliary dilatation. Note: Concordant preliminary findings given by the equine breeder upon the completion of the examination to Dr. Ambrose at 11:30 AM on 04/01/2024. Reviewed by: Jer Christensen MD on 04/01/2024 10:44 AM GEM Approved by: Jer Christensen MD on 04/01/2024 10:44 AM GEM Station ID: [id number]
--- NOTE | 2024-04-01 11:49 | ED Physician Documentation ---
PD HPI ABD PAIN - Stated complaint Stated Complaint: ADB PX - Chief complaint Chief Complaint: Abd Pain - History obtained from History obtained from: Patient - Additional information Additional information: She has a history of endometriosis, appendectomy. She has had some ongoing abdominal issues and had some epigastric pain with vomiting last night after eating fries and Boba tea. Now she had more severe epigastric pain radiating to the right send 6 AM. No persistent vomiting or changes in bowel movements. She is late midcycle on her menses. 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 HEENT: Dental implants - Past Surgical History Past Surgical History: Yes General: Appendectomy HEENT: Myringotomy (tubes), Tonsil/Adenoidectomy - Present Medications Home Medications: Ambulatory Orders Medication Instructions Recorded Confirmed Dextroamphetamine/Amphetamine 20 mg PO DAILY PRN 01/21/23 04/01/24 [Adderall 20 mg Tablet] Labetalol [Trandate] 200 mg PO BID 01/21/23 04/01/24 buPROPion [Wellbutrin Xl] 450 mg PO DAILY 01/21/23 04/01/24 Bismuth Subsalicylate 1 tab PO PRN PRN 04/01/24 04/01/24 [Pepto-Bismol] Omeprazole 40 mg PO BID #60 cap 04/01/24 Omeprazole Magnesium [Prilosec] 1 applic PO PRN PRN 04/01/24 04/01/24 - Allergies Allergies/Adverse Reactions: Allergies Allergy/AdvReac Type Severity Reaction Status Date / Time ketorolac tromethamine * Allergy Severe Headache Verified 04/01/24 09:54 [From Toradol] morphine Allergy Severe Hives Verified 04/01/24 09:54 Penicillins Allergy Severe Hives Verified 04/01/24 09:54 latex Allergy Rash Verified 04/01/24 09:54 tramadol [From Ultram] Allergy Headache Verified 04/01/24 09:54 hydrocodone [Hydrocodone] AdvReac Intermediate Cramps Verified 04/01/24 09:54 - Social History Does the pt smoke?: Yes Smoking Status: Current every day smoker Does the pt drink ETOH?: No Does the pt have substance abuse?: No - Immunizations Immunizations are current?: Yes - POLST Patient has POLST: No PD ED PE NORMAL - Vitals Vital signs reviewed: Yes - General General: Alert and oriented X 3, No acute distress - Abdomen Abdomen: Normal bowel sounds, Soft, Other (Tender in the epigastrium and right upper quadrant without surgical signs) - Back Back: No CVA TTP - Neuro Neuro: Alert and oriented X 3 Results - Vitals Vitals: Vital Signs - 24 hr 04/01/24 04/01/24 04/01/24 09:49 11:54 14:22 Temperature 36.4 C L 36.2 C L Heart Rate 86 78 68 Respiratory 20 18 16 Rate Blood Pressure 130/110 H 126/68 137/73 H O2 Saturation 100 99 100 04/01/24 16:19 Temperature Heart Rate 78 Respiratory 18 Rate Blood Pressure 112/76 O2 Saturation 98 Oxygen O2 Source Room air - Labs Labs: Laboratory Tests 04/01/24 04/01/24 04/01/24 09:50 11:42 11:42 WBC 8.0 RBC 4.14 L Hgb 11.9 L Hct 37.1 MCV 89.6 MCH 28.7 MCHC 32.1 RDW 12.5 Plt Count 401 MPV 9.7 Neut # (Auto) 5.7 Lymph # (Auto) 1.7 [place] # (Auto) 0.4 Eos # (Auto) 0.1 Baso # (Auto) 0.0 Absolute Nucleated RBC 0.00 Nucleated RBC % 0.0 Sodium 139 Potassium 3.7 Chloride 105 Carbon Dioxide 26 Anion Gap 8.0 BUN 9 Creatinine 0.7 Estimated GFR (MDRD) 95 Glucose 96 Calcium 10.3 Total Bilirubin 0.5 AST 18 ALT 17 Alkaline Phosphatase 58 Total Protein 7.3 Albumin 4.7 Globulin 2.6 Albumin/Globulin Ratio 1.8 Lipase 17 Urine Color YELLOW Urine Clarity CLEAR Urine pH 7.5 Ur Specific [place] 1.015 Urine Protein NEGATIVE Urine Glucose (UA) NEGATIVE Urine Ketones NEGATIVE Urine Occult Blood NEGATIVE Urine Nitrite NEGATIVE Urine Bilirubin NEGATIVE Urine Urobilinogen 0.2 (NORMAL) Ur Leukocyte Esterase NEGATIVE Ur Microscopic Review NOT INDICATED Urine Culture Comments NOT INDICATED Urine HCG, Qual NEGATIVE - Rads (name of study) RUQ sono Relevant Findings:: Final report received (Right upper quadrant ultrasound showing trace. Cholecystic fluid with equivocal Terrazas sign. No other signs of cholecystitis or biliary ductal dilatation.) CT A/P- L ov cyst, nothing abn in upper abd Relevant Findings:: Final report received, EMP independent interpretation of test Procedures - General procedure General procedure: She was difficult for IV access and wanted me to do it with ultrasound. I personally placed a long 22-gauge IV in the right AC using real-time ultrasound guidance after ChloraPrep which flushed and leonora well. PD Medical Decision Making - ED course ED course: She presents with epigastric and right upper quadrant pain. She is modestly tender, but no surgical signs. Biliary pathology would lead the differential. Interestingly her ultrasound shows some pericholecystic fluid but only a trace amount and it is not associated with other signs of cholecystitis such as wall thickening or stones. Subsequently labs were done which were basically normal w ith a CBC showing no leukocytosis and borderline anemia with a completely normal CMP and negative/normal urine and test. We trialed a GI cocktail which was unhelpful and this was followed by Dilaudid and order for CT. The CT was basically negative except for left ovarian cyst which the patient already knows about. The location of her pain is not consistent with that being a cause of her pain. Remaining differential would include gastritis/ulcer, occult biliary disease. We will start her on high-dose PPI and she was given for Percocet to go with instructions to follow-up with PCP if pain is persistent with consideration for HIDA versus endoscopy. Departure - Departure Disposition: 01 Home, Self Care Clinical Impression: Abdominal pain Condition: Good Record reviewed to determine appropriate education?: Yes Instructions: ED Abdominal Pain Female Non-Specific Abdominal Pain Prescriptions: Omeprazole 40 mg PO BID #60 cap Comments: I sent your prescriptions electronically to [facility] in [place]. The cause of the abdominal pain is not clear. There are no clear abnormalities to suggest that your gallbladder is involved more anything of little that would be immediately serious or life-threatening. We still entertain the possibility of gastritis, ulcers, or gallbladder pathology that is not showing up on the testing. I went to take the twice daily Prilosec and follow-up with your doctor with consideration for referral for endoscopy and/or HIDA scanning if symptoms are persistent. As far as dietary restrictions, you can play around with it, if it were your gallbladder we would expect fat and protein to trigger it, if it were your stomach we would expect NSAIDs such as ibuprofen, nicotine, caffeine, and spicy food to trigger it. Forms: PCP List Discharge Date/Time: 04/01/24 16:19
[2024-04-01 11:55] LABS: BASOPHILS % (AUTO) 0.5 %; EOSINOPHILS # (AUTO) 0.1 10^3/uL (0.0-0.7); EOSINOPHILS % (AUTO) 1.1 %; HCT - HEMATOCRIT 37.1 % (37.0-47.0); HGB - HEMOGLOBIN 11.9 g/dL (12.0-16.0); LYMPHOCYTES # (AUTO) 1.7 10^3/uL (1.5-3.5); LYMPHOCYTES % (AUTO) 21.2 %; MEAN CORPUSCULAR HEMOGLOBIN 28.7 pg (27.0-31.0); MEAN CORPUSCULAR HGB CONC 32.1 g/dL (32.0-36.0); MEAN CORPUSCULAR VOLUME 89.6 fL (81.0-99.0); MEAN PLATELET VOLUME 9.7 fL (7.9-10.8); MONOCYTES # (AUTO) 0.4 10^3/uL (0.0-1.0); MONOCYTES % (AUTO) 5.3 %; NEUTROPHILS # (AUTO) 5.7 10^3/uL (1.5-6.6); NEUTROPHILS % (AUTO) 71.8 %; PLT - PLATELET COUNT 401 10^3/uL (130-450); RED BLOOD COUNT 4.14 10^6/uL (4.20-5.40); RED CELL DISTRIBUTION WIDTH 12.5 % (12.0-15.0)
[2024-04-01 12:12] LABS: ALBUMIN 4.7 g/dL (3.2-5.5); ALBUMIN/GLOBULIN RATIO 1.8 (1.0-2.2); BILIRUBIN,TOTAL 0.5 mg/dL (0.2-1.0); CALCIUM 10.3 mg/dL (8.5-10.3); CREATININE 0.7 mg/dL (0.6-1.3); POTASSIUM 3.7 mmol/L (3.5-4.5); TOTAL PROTEIN 7.3 g/dL (6.4-8.9)
[2024-04-01] MEDS: LIDOCAINE VISCOUS 2% 15 ML UDC MM STA (12:19)
[2024-04-01] MEDS: MAG HYDROX/AL HYDROX/SIMETH 30 ML UDC PO STA (12:19)
[2024-04-01] MEDS: HYDROmorphone 1 MG/ML CARPUJECT IVP STA ×3 (13:04→15:38)
[2024-04-01] MEDS ORDERED: iohexoL-300 100 ML VIAL ONE (13:12)
[2024-04-01] MEDS: iohexoL-300 100 ML VIAL IVP ONE (15:02)
--- NOTE | 2024-04-01 15:43 | CT Report ---
PROCEDURE: Abdomen/Pelvis W INDICATIONS: iv only epigastric pn CONTRAST: 100ml omni 300 TECHNIQUE: After the administration of intravenous contrast, a CT scan of the abdomen and pelvis was performed. Images were recorded and evaluated at appropriate window settings. Reformats: coronal and sagittal. F or radiation dose reduction, the following was used: automated exposure control, adjustment of mA and /or kV according to patient size. COMPARISON: Abdominal ultrasound 04/01/2024 FINDINGS: Image quality: Diagnostic. Lower chest: Unremarkable. Liver: No solid mass. Gallbladder: No radiopaque stones or wall thickening. Biliary tree: No intrahepatic or extrahepatic dilation, accounting for age. Spleen: No splenomegaly. Pancreas: No pancreatic ductal dilation. Adrenals: No adrenal nodule. Kidneys and ureters: No hydronephrosis. No renal cystic lesion which requires follow up. No solid mas s. Stomach, bowel and peritoneum: No gastric or small bowel dilation. No abnormal wall thickening. No pa thologic free fluid. Status post appendectomy Lymph nodes: No central or retroperitoneal adenopathy. Vessels: No infrarenal aortic aneurysm. Patent portal vein. PELVIS Reproductive organs: Enhancing left ovarian corpus luteum cyst. Small amount of mildly hyperdense flu id in the pelvic cul-de-sac. Bladder: No abnormal wall thickening, accounting for underdistention. Pelvic lymph nodes: No pelvic adenopathy by size criteria. Bones: No aggressive osseous abnormality. Other: No significant ventral or inguinal hernia. IMPRESSION: 1.Peripherally enhancing left ovarian cyst and mildly hyperdense fluid in the adjacent pelvis could i ndicate recently ruptured hemorrhagic ovarian cyst. 2.Otherwise, no acute abnormality identified in the abdomen or pelvis. Reviewed by: Dean Vidal MD on 04/01/2024 3:42 PM PDT Approved by: Dean Vidal MD on 04/01/2024 3:42 PM PDT Station ID: [id number]
[2024-04-01] MEDS: PANTOPRAZOLE 40 MG VIAL IVP STA (16:08)
[2024-04-01] MEDS: oxyCODONE/ACET 5/325 Prepack 4 PO STA (16:12)
[2024-04-01 16:26] VITALS: BP 112/76; O2SAT 98
== END 2024-04-01 16:19 | disposition home or self-care (01) ==
LOC: ED 09:28
DX: R10.13 Epigastric pain (principal); R10.11 Right upper quadrant pain; R11.10 Vomiting, unspecified; Z32.02 Encounter for pregnancy test, result negative
CPT/HCPCS: 36415; 74177; 76705; 80053; 81003; 81025; 83690; 85025; 96374; 96375; 96376; 99284; A9270; J1170; Q9967; 81001; 87086